=== PATIENT | female | born 1965 | race Caucasian/White ===

== ENCOUNTER 2018-09-20 05:55 | Emergency (ER) | payer OTHER ==
[~2018-09-20] VITALS: Ht 170.2 cm; Wt 58.1 kg
[2018-09-20 05:55] VITALS: BP_SYST 147
--- NOTE | 2018-09-20 05:55 | NUR ---
Patient to ER bed 6 to gown for evaluation. Side rails up.
--- NOTE | 2018-09-20 05:57 | NUR ---
ER Dr. Anderson at bedside examining patient.
[2018-09-20] MEDS ORDERED: NACL 0.9% 1,000 ML IV ONE (05:58)
[2018-09-20] MEDS ORDERED: fentaNYL CITRATE/PF 100 MCG/2 ML AMP IVP ONE ×2 (06:00→09:00)
[2018-09-20] MEDS ORDERED: ONDANSETRON HCL 4 MG/2 ML VIAL IVP ONE ×2 (06:00→07:30)
--- NOTE | 2018-09-20 06:00 | NUR ---
Pt brought in ambulance C/O abdominal pain, nausea and vomiting since 330 this morning. Pt states she had food poisoning last night and symptoms progressively worsened. Pt's pain is 10/10 nonradiating and has hx of abdominal surgery. Pt denies chest pain or shortness of breath. Vital signs are stable will continue to monitor.
[2018-09-20 06:24] LABS: BASOPHILS # (AUTO) 0.1 K/uL (0.0-0.2); BASOPHILS % (AUTO) 0.5 % (0.0-2.0); EOSINOPHILS # (AUTO) 0.1 K/uL (0.0-0.4); EOSINOPHILS % (AUTO) 0.5 % (0.0-4.0); HEMATOCRIT 45.2 % (36-48); HEMOGLOBIN 15.2 g/dL (12.0-16.0); LYMPHOCYTES # (AUTO) 1.8 K/uL (1.0-5.5); LYMPHOCYTES % (AUTO) 11.2 % (20.5-51.5); MEAN CORPUSCULAR HEMOGLOBIN 33 pg (27-31); MEAN CORPUSCULAR HGB CONC 34 % (32-36); MEAN CORPUSCULAR VOLUME 100 fL (79.0-98.0); MONOCYTES # (AUTO) 1.1 K/uL (0.0-1.0); MONOCYTES % (AUTO) 6.6 % (1.7-9.3); NEUTROPHILS # (AUTO) 12.9 K/uL (1.8-7.7); NEUTROPHILS % (AUTO) 81.2 % (40.0-70.0); PLATELET COUNT (AUTO) 363 K/uL (130-430); RED BLOOD CELL COUNT(AUTO) 4.53 MIL/uL (4.2-6.2); RED CELL DISTRIBUTION WIDTH 11.7 % (9.0-15.0)
--- NOTE | 2018-09-20 06:30 | NUR ---
Patient transported to radiology via gurney, accompanied by rad staff.
[2018-09-20 06:44] LABS: CALCIUM 10.3 mg/dL (8.4-11.0); POTASSIUM 3.3 mmol/L (3.5-5.1)
[2018-09-20 06:45] LABS: ALBUMIN 4.2 g/dL (3.4-4.8); CREATININE 0.79 mg/dL (0.55-1.30); TOTAL BILIRUBIN 0.4 mg/dL (0.0-1.0)
--- NOTE | 2018-09-20 07:07 | NUR ---
Pt is stating pain is starting to increase and is requesting pain medication. Dr. Anderson notified
--- NOTE | 2018-09-20 07:08 | NUR ---
Pt is resting in bed, at bedside. Report given to Alla AGUILAR
[2018-09-20] MEDS ORDERED: MORPHINE 4 MG/ML INJ. SYRINGE IVP ONE ×2 (07:15→08:15)
--- NOTE | 2018-09-20 07:58 | NUR ---
Dr Vásquez at bedside updating patient.
--- NOTE | 2018-09-20 08:24 | NUR ---
Pt medicated for pain as ordered by Dr Vásquez, well tolerated.
--- NOTE | 2018-09-20 09:15 | NUR ---
Patient report called to Cheli Azar.
--- NOTE | 2018-09-20 09:39 | NUR ---
Informed by EMS, 10 minute delay. Patient and family made aware.
--- NOTE | 2018-09-20 10:10 | NUR ---
Patient to be transferred to [facility]. Is being transferred due to higher level of care, insurance request. Receiving facility has accepting physician and available space. ER physician has signed transfer form. Patient or responsible alliance party has agreed to transfer and signed form. Patient belongings inventoried and will be sent with patient. Copy of nursing notes, lab reports, EKG, Physicians Orders and X-rays to be sent with patient. Report called to Toya at receiving facility. Receiving physician is Dr. Avendaño. [facility] has been called for transfer.
[2018-09-20 10:13] VITALS: BP_SYST 153
== END 2018-09-20 10:13 | disposition short-term general hospital (02) ==
LOC: SED 05:55
DX: K85.90 Acute pancreatitis without necrosis or infection, unspecified (principal); Z88.2 Allergy status to sulfonamides
CPT/HCPCS: 36415; 74176; 80053; 83605; 83690; 84484; 85025; 87040; 93005; 96361; 96374; 96375; 96376; 99285; J2270; J2405; J3010; J7030